=== PATIENT | male | born 1985 | race Caucasian/White ===

== ENCOUNTER 2024-04-11 15:15 | Emergency (ER) | payer OTHER, SELFPAY ==
[2024-04-11 15:27] VITALS: BP 133/93
[2024-04-11 15:51] LABS: % Basophils 0.4 % (0-2); % Eosinophils 0.5 % (0-6); % Immature Granulocytes 0.1 % (0-0.5); % Lymphocytes 27.5 % (20.5-51.1); % Monocytes 5.1 % (1.7-9.3); % Neutrophils 66.4 % (42.2-75.2); Absolute Monocytes 0.4 10^3/uL (0.1-0.6); Absolute Neutrophils 4.8 10^3/uL (1.4-6.5); Hematocrit 45.1 % (39.0-52.0); Hemoglobin 15.6 g/dL (13.0-18.0); Mean Corp Hgb Conc. 34.6 g/dL (33.0-37.0); Mean Corpuscular Hgb 28.5 pg (27.0-31.0); Mean Corpuscular Volume 82.4 fL (80.0-94.0); Mean Platelet Volume 10.7 fL (7.4-10.4); Nucleated Red Blood Cells % 0 % (-); Platelet Count 188 10^3/uL (130-400); Red Blood Cell Count 5.47 10^6/uL (4.70-6.10); Red Cell Dist. Width 11.9 % (11.5-14.5); White Blood Cell Count 7.3 10^3/uL (4.8-10.8)
[2024-04-11 16:03] LABS: ALT (SGPT) 23 U/L (0-50); AST (SGOT) 23 U/L (17-59); Albumin 5.4 g/dl (3.5-5.0); Alkaline Phosphatase 51 U/L (38-126); Blood Urea Nitrogen 12 mg/dl (9-20); Calcium 10.2 mg/dl (8.4-10.2); Carbon Dioxide 26 mmol/L (22-30); Chloride 99 mmol/L (98-107); Glucose 112 mg/dl (70-99); Sodium 135 mmol/L (135-145); Total Bilirubin 0.5 mg/dl (0.2-1.3); Total Protein 8.4 g/dl (6.3-8.2); eGFR > 60.00
[2024-04-11 16:14] VITALS: BP 119/75
[2024-04-11 16:14] LABS: Troponin I < 0.012 ng/ml
[2024-04-11 17:00] VITALS: BP 121/73
--- NOTE | 2024-04-11 17:54 | ED.GENMED ---
History of Present Illness
General
Chief Complaint: Breathing Problem
Source: patient
Time Seen by Provider: 04/11/24 17:07
History of Present Illness
History of Present Illness:
39-year-old male presents to the emergency room complaining of pressure in his chest which has been present for the past 10 days or so. Nothing seems to make it better or worse. Patient states he is able to perform all normal activities and in
fact went for a run yesterday without any difficulty. However the persistence of this chest discomfort has him concerned. He would see his primary care doctor who ordered a CAT scan but insurance evidently did not approve it. Because he continues
he is come to the emergency room for further evaluation. He denies any fever or chills. He denies any pain with deep inspiration. He did travel to [place] and back a couple weeks ago by car. However he has no discomfort or swelling in his
lower extremities. Patient endorses a bit of a sore throat but no significant cough.
Past History
Past History
ED Past Medical History: None
ED Past Surgical History: None
Social History
Tobacco: Non-smoker
Alcohol: Occasional
Drug: None
Personal: Single
Living: alone
Employment: Employed
Family History
Family History: Other (Noncontributory)
Phy Exam
Physical Exam
Physical Exam:
General: Awake, Alert, Oriented X3. No acute distress.
Vitals: unremarkable
Head: Atraumatic
Eyes: Pupils equal, EOMI
Throat: Airway intact, no exudates
Neck: Trachea midline
Lungs: Good aeration bilaterally, few scattered rhonchi
Heart: Regular rate, no murmurs
Abd: Soft, Nontender, No pulsatile mass
Neuro: Nonfocal
Skin: Warm, dry, no rash
Extremities: pulses equal b/l, no edema
Course
Orders/Labs/Results
Orders:
Orders
04/11/24 15:17
EKG [Electrocardiogram (*1)] Urgent
Reason for Study: Chest Pain
EKG- Treatment ONCE
04/11/24 15:39
CMP [Comprehensive Metabolic Panel] Urgent
Complete Blood Count/With Diff Urgent
Troponin I Urgent
04/11/24 18:18
D-Dimer Urgent
04/11/24 18:48
CR Chest - 2 Views Urgent
Comment:
Reason For Exam: chest discomfort
Abnormal Lab Results
04/11/24
15:39
MPV 10.7 H fL
(7.4-10.4)
Glucose 112 H mg/dl
(70-99)
Total Protein 8.4 H g/dl
(6.3-8.2)
Albumin 5.4 H g/dl
(3.5-5.0)
04/11/24 15:39
04/11/24 15:39
Vital Signs
Initial and Last Documented VS:
Initial Vital Signs
Temp Pulse Resp BP Pulse Ox
98.1 F 88 16 133/93 100
04/11/24 15:27 04/11/24 15:27 04/11/24 15:27 04/11/24 15:27 04/11/24 15:27
Last Documented Vital Signs
Temp Pulse Resp BP Pulse Ox
98.1 F 67 14 129/80 99
04/11/24 15:27 04/11/24 20:02 04/11/24 20:02 04/11/24 20:02 04/11/24 20:02
MDM/Problems Addressed
Differential Diagnosis Includes:
You with, pneumonia, PE, chest wall discomfort, ACS
MDM/Problems Addressed:
Patient presents with a chest discomfort of several days duration. Workup here shows no acute abnormalities. Patient stable for discharge home.
*Radiology
Radiology exam reviewed: preliminary read by ED provider (Normal chest x-ray on my review)
*Pulse Oximetry
Patient hypoxic: no
*EKG
Interpreted by ED Provider?: Yes
Interpretation: normal
Heart Rate: 81
Rate: normal
Rhythm: sinus
[place]: normal axis
QRS Pattern: right bundle branch block (Incomplete right bundle)
Ischemia: no ischemia
*Cut Out And Marking Machine Operator Interpretation
Rate: normal
Interpretation: normal
Rhythm: sinus
*Critical Care Note
Total Time (30-74mins, 75-104mins- exclusive of procedures): Not Applicable
ED Attending Note
-
Portions of this chart may have been created with voice recognition software.� Occasional wrong word or��sound alike� substitutions may have occurred due to the inherent limitations of voice recognition software.
Discharge Plan
Departure
Patient Disposition: Home (Routine Discharge)
Date of Disposition: 04/11/24
Time of Disposition: 20:01
Patient with high blood pressure during this ER visit?: No
Condition: Good
Discharge Problem:
Chest pain
Instructions: Chest Pain (DC)
Prescriptions:
No Action
No Meds [No Current Medications]
0
lamivudine-zidovudine 1 TABLET tablet
1 tab PO BID Qty: 60 0RF
metoclopramide HCl 5 MG tablet
5 - 10 mg PO TIDPRN PRN (Reason: nausea) Qty: 30 0RF
Referrals:
Lew Gonsalez MD [Family Provider] -
Interventions
Interventions:
*Risk Screen - Suicide Last Done: 04/11/24 15:27
*General Assessment Last Done: 04/11/24 15:27
*Neglect/Abuse Screening Last Done: 04/11/24 15:27
ED- Fall Risk Assessment Last Done: 04/11/24 16:40
*ED COVID-19 Vaccine History Last Done: 04/11/24 15:27
*Nursing Disposition Last Done: 04/11/24 20:14
ED- Cardiac Assessment Last Done: 04/11/24 18:15
ED- Pulmonary Assessment Last Done: 04/11/24 18:15
Discharge Date and Time
Discharge Date/Time: 04/11/24 20:15
Print Language: TONGAN
[2024-04-11 18:16] VITALS: BP 123/75
[2024-04-11 18:23] VITALS: BMI 23.8
[2024-04-11 18:45] LABS: D-Dimer < 0.27 ug/mlFEU (0.00-0.50)
[2024-04-11 19:00] VITALS: BP 104/77
[2024-04-11 20:02] VITALS: BP 129/80
== END 2024-04-11 20:15 | disposition home or self-care (01) ==
LOC: EMR 15:15
PROVIDERS: Emergency Medicine; EMERGENCY PHYSICIAN Emergency Medicine; FAMILY PHYSICIAN Family Medicine
DX: R07.89 Other chest pain (principal)
CPT/HCPCS: 99285; 71046; 80053; 84484; 85025; 85379; 93005